=== PATIENT | male | born 1975 | race Hispanic/Latino ===

== ENCOUNTER 2020-12-15 12:32 | Observation (INO) | payer SELFPAY ==
[~2020-12-15] VITALS: Ht 185.4 cm; Wt 110.5 kg
[2020-12-15] MEDS ORDERED: MORPHINE 2 MG SYG IM ONE (13:00)
[2020-12-15] MEDS ORDERED: ONDANSETRON 4MG INJ IVP ONE (13:00)
[2020-12-15] MEDS ORDERED: 0.9%NACL 1000ML 1,000 ML IV SCH (13:00)
[2020-12-15] MEDS ORDERED: ZOSYN 3.375GM+NS 50ML 3.38 GM in 0.9%NACL 50ML 50 ML IV SCH (13:00)
[2020-12-15] MEDS ORDERED: INSULIN HUMULIN R 100 UNIT/ML 3ML SQ ONE (13:00)
[2020-12-15 13:11] LABS: BASOPHILS % (AUTO) 1.1 % (0.0-5.0); EOSINOPHILS % (AUTO) 5.2 % (0.0-8.0); HEMATOCRIT 37.4 % (42-54); LYMPHOCYTES % (AUTO) 19.7 % (21.0-51.0); MEAN CORPUSCULAR HEMOGLOBIN 27.9 pg (27.0-33.0); MEAN CORPUSCULAR HGB CONC 33.2 g/dL (32.0-36.0); MEAN CORPUSCULAR VOLUME 84.2 fL (79-99); MONOCYTES % (AUTO) 7.5 % (3.0-13.0); NEUTROPHILS % (AUTO) 66.4 % (40.0-77.0); PLATELET COUNT (AUTO) 453 K/uL (130-400); RED BLOOD CELL COUNT(AUTO) 4.44 MIL/uL (4.50-6.20); RED CELL DISTRIBUTION WIDTH 12.8 % (11.0-15.5); WHITE BLOOD COUNT (AUTO) 7.1 K/uL (4.8-10.8)
[2020-12-15] MEDS: ZOSYN 3.375GM+NS 50ML 50 ML IV SCH ×2 (13:26→13:28)
[2020-12-15 13:31] LABS: CREATININE 0.9 mg/dL (0.5-1.5); POTASSIUM 4.1 mmol/L (3.5-5.1)
[2020-12-15 13:36] LABS: ALBUMIN 3.8 g/dL (3.5-5.0); BILIRUBIN,TOTAL 0.5 mg/dL (0.2-1.0); CRP QUANTITATIVE 11.5 mg/L (0.00-9.0)
[2020-12-15 14:59] LABS: BILIRUBIN,URINE Negative (NEGATIVE); COLOR,URINE Yellow (YELLOW); GLUCOSE, URINE (UA) Negative (NEGATIVE); KETONES,URINE Negative (NEGATIVE); LEUKOCYTE ESTERASE ,URINE Negative (NEGATIVE); NITRATE,URINE Negative (NEGATIVE); OCCULT BLOOD,URINE Negative (NEGATIVE); PROTEIN,URINE Negative (NEGATIVE)
[2020-12-15 15:00] LABS: APPEARANCE,URINE CLEAR (CLEAR)
[2020-12-15] MEDS ORDERED: DIPHENHYDRAMINE HCL 25 MG CAPSULE PO PRN (15:30)
[2020-12-15] MEDS ORDERED: ACETAMINOPHEN 325 MG TAB PO PRN ×2 (15:30)
[2020-12-15] MEDS ORDERED: ONDANSETRON 4MG INJ IV PRN (15:30)
[2020-12-15] MEDS ORDERED: DiphenhydrAMINE HCL 50 MG/ML VIAL IV PRN (15:30)
[2020-12-15] MEDS ORDERED: ACETAMINOPHEN WITH CODEINE 1 TAB TAB PO PRN (15:30)
[2020-12-15] MEDS ORDERED: ZOLPIDEM TARTRATE 5 MG TAB PO PRN (15:30)
[2020-12-15] MEDS: LACTATED RINGERS 1000ML 1,000 ML IV SCH (15:53)
[2020-12-15] MEDS ORDERED: VANCOMYCIN PROTOCOL PER PHARMACY IV SCH (16:30)
[2020-12-15] MEDS ORDERED: CEFEPIME HCL 1 GM VIAL IVP SCH (16:30)
[2020-12-15] MEDS: CEFEPIME HCL 2 GM VIAL IVP SCH (17:13)
[2020-12-15] MEDS: METRONIDAZOLE 500 MG TABLET PO SCH (17:13)
[2020-12-15] MEDS ORDERED: COMPOUND IV REFRIGERATED 1 EACH IVSOLN MISC PRN (17:30)
[2020-12-15] MEDS ORDERED: INSU3INS5 SQ (17:31)
[2020-12-15] MEDS ORDERED: CARV6.25 PO (17:31)
[2020-12-15] MEDS ORDERED: FURO20TA4 PO (17:31)
[2020-12-15] MEDS ORDERED: INSU10VI3 SQ (17:31)
[2020-12-15] MEDS ORDERED: ATOR40TA69 PO (17:31)
[2020-12-15] MEDS ORDERED: FENO145T26 PO ×2 (17:31)
[2020-12-15] MEDS: VANCOMYCIN 1.5GM/NS 250ML IV SCH ×2 (20:14)
[2020-12-15] MEDS: FAMOTIDINE 20MG TAB PO SCH (20:14)
[2020-12-15] MEDS ORDERED: ZOSYN 3.375GM+NS 50ML 50 ML IV SCH (21:00)
[2020-12-16] MEDS: METRONIDAZOLE 500 MG TABLET PO SCH ×2 (00:32→09:48)
[2020-12-16 00:55] VITALS: BP 168/96
[2020-12-16 04:00] VITALS: BP 135/81
[2020-12-16 04:41] LABS: MEAN CORPUSCULAR HEMOGLOBIN 27.6 pg (27.0-33.0); MEAN CORPUSCULAR HGB CONC 33.1 g/dL (32.0-36.0); MEAN CORPUSCULAR VOLUME 83.5 fL (79-99); RED BLOOD CELL COUNT(AUTO) 4.31 MIL/uL (4.50-6.20); RED CELL DISTRIBUTION WIDTH 12.6 % (11.0-15.5); WHITE BLOOD COUNT (AUTO) 7.6 K/uL (4.8-10.8)
[2020-12-16 05:08] LABS: ALBUMIN 3.5 g/dL (3.5-5.0); BILIRUBIN,TOTAL 0.5 mg/dL (0.2-1.0); CREATININE 0.9 mg/dL (0.5-1.5); POTASSIUM 3.9 mmol/L (3.5-5.1); TOTAL PROTEIN, SERUM 7.6 g/dL (6.0-8.3)
[2020-12-16] MEDS: LACTATED RINGERS 1000ML 1,000 ML IV SCH (05:50)
[2020-12-16] MEDS: CEFEPIME HCL 2 GM VIAL IVP SCH (06:15)
[2020-12-16] MEDS: ZOSYN 3.375GM+NS 50ML 50 ML IV SCH ×2 (06:15→12:03)
[2020-12-16 08:31] VITALS: BP 159/96
[2020-12-16] MEDS ORDERED: ENOXAPARIN SODIUM 30 MG/0.3 ML SQ SCH (09:00)
[2020-12-16] MEDS: VANCOMYCIN 1.5GM/NS 250ML IV SCH ×2 (09:48)
[2020-12-16] MEDS: FAMOTIDINE 20MG TAB PO SCH (09:49)
[2020-12-16 11:43] VITALS: BP 147/88
[2020-12-16] MEDS ORDERED: INSULIN HUMULIN R 100 UNIT/ML 3ML ONE (11:49)
[2020-12-16] MEDS ORDERED: AMOX500T2 PO (14:41)
[2020-12-16] MEDS ORDERED: INSULIN HUMULIN R 100 UNIT/ML 3ML SQ SCH ×2 (16:30)
== END 2020-12-16 16:00 | disposition home or self-care (01) ==
LOC: EDH 12:32 → INTOOBSV 12:33 → EDHIP 12:33 → 3DH 12-16 00:40
PROVIDERS: ADMIT Internal Medicine; ATTEND Internal Medicine
DX: L02.214 Cutaneous abscess of groin (principal); L03.314 Cellulitis of groin; E11.9 Type 2 diabetes mellitus without complications; I10 Essential (primary) hypertension; E78.5 Hyperlipidemia, unspecified; E66.01 Morbid (severe) obesity due to excess calories; J45.909 Unspecified asthma, uncomplicated; E78.00 Pure hypercholesterolemia, unspecified; I25.10 Atherosclerotic heart disease of native coronary artery without angina pectoris; Z68.31 Body mass index [BMI] 31.0-31.9, adult; Z95.1 Presence of aortocoronary bypass graft; Z79.4 Long term (current) use of insulin; Z87.891 Personal history of nicotine dependence; Z79.899 Other long term (current) drug therapy
CPT/HCPCS: 36415 ×2; 76705; 80053 ×2; 81003; 82948 ×3; 83605; 85025; 85027; 86140; 87040 ×2; 87070; 87076; 87077; 87186; 96361; 96365; 96366 ×3; 96367; 96368; 96372 ×2; 96375; 96376; 99284; G0378 ×26; J0692 ×2; J1650; J1815 ×2; J2405; J2543 ×3; J3370; J7050; J7120